=== PATIENT | male | born 1960 | race Two or more races ===

== ENCOUNTER 2022-03-03 11:18 | Observation (INO) | payer OTHER ==
[~2022-03-03] VITALS: Ht 185.4 cm; Wt 147.4 kg
[2022-03-03 11:50] LABS: Basophils # (auto) 0.1 10 ^3/uL (0-0.2); Basophils % (auto) 0.7 % (0.0-2.0); Eosinophils # (auto) 0.1 10 ^3/uL (0-0.8); Hematocrit 50.2 % (41.0-53.0); Hemoglobin 16.8 g/dL (13.5-17.5); Lymphocytes # (auto) 1.5 10 ^3/uL (0.4-5.4); Mean Corpuscular Hemoglobin 31.8 pg (28.0-32.0); Mean Corpuscular Hgb Conc. 33.4 g/dL (32.0-36.0); Mean Corpuscular Volume 95.1 fL (80.0-100.0); Monocytes # (auto) 0.9 10 ^3/uL (0-1.3); Monocytes % (auto) 8.8 % (0.0-12.0); Neutrophils # (auto) 7.4 10 ^3/uL (1.6-8.6); Neutrophils % (auto) 74.5 % (37.0-80.0); Nucleated Red Blood Cells % 0.1 %; Red Blood Cells 5.27 10^6/uL (4.5-5.90); Red Cell Distribution Width 15.5 % (11.8-14.3); White Blood Cell 9.9 10^3/uL (4.4-10.8)
[2022-03-03 12:11] LABS: Potassium 5.1 mmol/L (3.5-5.1)
[2022-03-03] MEDS ORDERED: AMIODARONE HCL 150 MG in D5W 5% 100 ML IV ONE (12:15)
[2022-03-03 12:17] LABS: Albumin 3.4 g/dL (3.4-5.0); Bilirubin, Total 1.2 mg/dL (0.2-1.0); Calcium 8.8 mg/dL (8.5-10.1); Total Protein 6.2 g/dL (6.4-8.2)
[2022-03-03] MEDS ORDERED: AMIODARONE 450mg/250ml AE 250 ML IV SCH ×2 (12:30→21:00)
[2022-03-03] MEDS ORDERED: FUROSEMIDE 40 MG/4 ML VIAL IV ONE (13:45)
[2022-03-03 15:24] LABS: Urine Bacteria NONE SEEN /hpf (None Seen); Urine Blood Negative /uL (Negative); Urine Hyaline Cast FEW /lpf (0 - 2); Urine Mucus FEW (None Seen); Urine Specific Gravity 1.018 (1.001-1.035); Urine WBC 1 /hpf (0 - 3)
[2022-03-03] MEDS ORDERED: IOHEXOL 350 MG/ML 100ML IJ ONE (15:50)
[2022-03-03] MEDS ORDERED: MORPHINE SULFATE INJ 2 MG/ml SYRG IV PRN (17:00)
[2022-03-03] MEDS ORDERED: NITROGLYCERIN 0.4 MG SL TAB SL PRN (17:00)
[2022-03-04 05:03] VITALS: BP 143/114
[2022-03-04] MEDS ORDERED: PNEUMOCOCCAL VACC POLYS 25 MCG/0.5 ML VIAL IM ONE (06:00)
[2022-03-04] MEDS ORDERED: METOPROLOL TARTRATE 25 MG TAB PO ONE ×2 (08:30→16:15)
[2022-03-04 09:16] VITALS: BP 150/105
[2022-03-04] MEDS ORDERED: METOPROLOL TARTRATE 25 MG TAB PO SCH (10:00)
[2022-03-04] MEDS: AZITHROMYCIN 500MG/ 250ML 250 ML IV SCH ×2 (12:04→17:04)
[2022-03-04] MEDS: cefTRIAXone 1GM/50ML D5W 50 ML IV SCH (12:04)
[2022-03-04 12:54] VITALS: BP 125/83
[2022-03-04] MEDS ORDERED: HEPARIN SODIUM (PORCINE) 5000 UNITS/ML 1ML VIAL IV ONE ×2 (13:28→21:30)
[2022-03-04] MEDS ORDERED: HEPARIN DRIP/D5W 100UNITS/ML 250 ML IV SCH ×2 (13:28→21:15)
[2022-03-04 13:32] LABS: Basophils # (auto) 0.1 10 ^3/uL (0-0.2); Basophils % (auto) 0.5 % (0.0-2.0); Eosinophils # (auto) 0.1 10 ^3/uL (0-0.8); Eosinophils % (auto) 0.5 % (0.0-7.0); Hematocrit 48.6 % (41.0-53.0); Hemoglobin 16.2 g/dL (13.5-17.5); Lymphocytes # (auto) 0.9 10 ^3/uL (0.4-5.4); Lymphocytes % (auto) 7.7 % (10.0-50.0); Mean Corpuscular Hemoglobin 31.5 pg (28.0-32.0); Mean Corpuscular Hgb Conc. 33.2 g/dL (32.0-36.0); Mean Corpuscular Volume 94.7 fL (80.0-100.0); Monocytes % (auto) 8.8 % (0.0-12.0); Neutrophils # (auto) 9.6 10 ^3/uL (1.6-8.6); Neutrophils % (auto) 82.5 % (37.0-80.0); Nucleated Red Blood Cells % 0.1 %; Red Blood Cells 5.13 10^6/uL (4.5-5.90); Red Cell Distribution Width 15.2 % (11.8-14.3); White Blood Cell 11.6 10^3/uL (4.4-10.8)
[2022-03-04 13:46] LABS: Calcium 8.8 mg/dL (8.5-10.1); Potassium 4.4 mmol/L (3.5-5.1)
[2022-03-04 13:50] LABS: BUN/Creatinine Ratio 25.3
[2022-03-04 14:28] LABS: INR 1.19 (0.9-1.15); Partial Thromboplastin Time 26.7 sec (24.6-33.4)
[2022-03-04] MEDS ORDERED: HYALURONIDASE 150 UNIT/1 ML SUBCUT ONE (14:45)
[2022-03-04] MEDS: NITROGLYCERIN 2% OINT 1GM PKG TD SCH ×4 (15:30→18:53)
[2022-03-04 17:01] VITALS: BP 109/74
[2022-03-04] MEDS ORDERED: METOPROLOL TARTRATE 1MG/1ML-5ML VIAL IV PRN (18:00)
[2022-03-04 20:34] LABS: INR 1.26 (0.9-1.15); Partial Thromboplastin Time 30.8 sec (24.6-33.4)
[2022-03-04] MEDS ORDERED: NITROGLYCERIN 2% OINT 1GM PKG TD SCH (20:45)
[2022-03-04] MEDS: AMIODARONE HCL 200 MG TAB PO SCH (22:05)
[2022-03-04] MEDS: METOPROLOL TARTRATE 25 MG TAB PO SCH (23:06)
[2022-03-05 00:27] VITALS: BP 117/80
[2022-03-05 04:06] LABS: Basophils # (auto) 0.1 10 ^3/uL (0-0.2); Basophils % (auto) 0.8 % (0.0-2.0); Eosinophils # (auto) 0.1 10 ^3/uL (0-0.8); Eosinophils % (auto) 0.7 % (0.0-7.0); Hematocrit 42.4 % (41.0-53.0); Hemoglobin 13.6 g/dL (13.5-17.5); Lymphocytes # (auto) 1.4 10 ^3/uL (0.4-5.4); Lymphocytes % (auto) 11.3 % (10.0-50.0); Mean Corpuscular Hemoglobin 30.8 pg (28.0-32.0); Mean Corpuscular Hgb Conc. 32.2 g/dL (32.0-36.0); Mean Corpuscular Volume 95.8 fL (80.0-100.0); Monocytes # (auto) 1.4 10 ^3/uL (0-1.3); Monocytes % (auto) 11.5 % (0.0-12.0); Neutrophils # (auto) 9.1 10 ^3/uL (1.6-8.6); Neutrophils % (auto) 75.7 % (37.0-80.0); Nucleated Red Blood Cells % 0.1 %; Red Blood Cells 4.42 10^6/uL (4.5-5.90); Red Cell Distribution Width 15.3 % (11.8-14.3)
[2022-03-05 04:21] LABS: Calcium 8.2 mg/dL (8.5-10.1); Potassium 4.4 mmol/L (3.5-5.1)
[2022-03-05 04:26] LABS: INR 1.21 (0.9-1.15); Partial Thromboplastin Time 37.2 sec (24.6-33.4)
[2022-03-05] MEDS ORDERED: HEPARIN DRIP/D5W 100UNITS/ML 250 ML IV SCH ×2 (04:45→11:30)
[2022-03-05 05:00] VITALS: BP 127/76
[2022-03-05 09:00] VITALS: BP 113/80
[2022-03-05] MEDS: cefTRIAXone 1GM/50ML D5W 50 ML IV SCH (09:00)
[2022-03-05] MEDS: AZITHROMYCIN 500MG/ 250ML 250 ML IV SCH (10:00)
[2022-03-05] MEDS: METOPROLOL TARTRATE 25 MG TAB PO SCH (10:00)
[2022-03-05] MEDS: HYALURONIDASE 150 UNIT/1 ML SUBCUT ONE (10:45)
[2022-03-05 10:53] LABS: INR 1.22 (0.9-1.15); Partial Thromboplastin Time 33.3 sec (24.6-33.4)
[2022-03-05] MEDS ORDERED: HEPARIN SODIUM (PORCINE) 5000 UNITS/ML 1ML VIAL IV ONE (11:15)
[2022-03-05] MEDS: AMIODARONE HCL 200 MG TAB PO SCH (11:25)
[2022-03-05] MEDS ORDERED: HYALURONIDASE 150 UNIT/1 ML SUBCUT ONE (12:00)
[2022-03-05] MEDS ORDERED: AMIO200T33 PO (12:35)
[2022-03-05] MEDS ORDERED: APIX5TAB OR (12:35)
[2022-03-05] MEDS ORDERED: LEVO750T8 PO (12:35)
[2022-03-05] MEDS ORDERED: ALBU108A14 IN (12:38)
[2022-03-05] MEDS ORDERED: GUAI600T23 PO (12:38)
[2022-03-05] MEDS ORDERED: FURO1TAB33 PO (12:38)
[2022-03-05] MEDS ORDERED: MET25T PO (12:38)
[2022-03-05] MEDS ORDERED: POTA10TA51 PO (12:38)
[2022-03-05 13:07] VITALS: BP 103/76
[2022-03-05 16:34] VITALS: BP 109/86
[2022-03-05 18:11] VITALS: BP 103/76
== END 2022-03-05 19:20 | disposition home or self-care (01) ==
LOC: ER 11:18 → TELE 17:03 → TELE-WESTW 03-04 03:14
PROVIDERS: ADMIT Internal Medicine; ATTEND Internal Medicine
DX: I48.91 Unspecified atrial fibrillation (principal); Z20.822 Contact with and (suspected) exposure to COVID-19; J18.9 Pneumonia, unspecified organism; I11.0 Hypertensive heart disease with heart failure; I50.43 Acute on chronic combined systolic (congestive) and diastolic (congestive) heart failure; E66.9 Obesity, unspecified; J44.0 Chronic obstructive pulmonary disease with (acute) lower respiratory infection; F17.210 Nicotine dependence, cigarettes, uncomplicated; D84.9 Immunodeficiency, unspecified; Z79.899 Other long term (current) drug therapy; Z90.81 Acquired absence of spleen; Z98.890 Other specified postprocedural states; Z68.41 Body mass index [BMI] 40.0-44.9, adult
CPT/HCPCS: 36415; 71045; 71275; 80048; 80053; 81001; 83880; 84443; 84484; 85025; 85379; 85610; 85730; 87426; 93005; 93971; 94660; 96365; 96366; 96367; 96368; 96372; 96375; 96376; 99291; G0378; J0282; J0456; J0696; J1644; J1940; J3470; J7030; J7060; Q9967